=== PATIENT | female | born 1945 | race Caucasian/White ===

== ENCOUNTER → 2023-09-15 12:38 | Outpatient (REF) | payer OTHER, SELFPAY | LOC: RAD 12:38 | PROVIDERS: ATTENDING PHYSICIAN Physician Assistant Medical | DX: M81.0 Age-related osteoporosis without current pathological fracture (principal) | CPT/HCPCS: 77080 ==

== ENCOUNTER → 2023-12-01 10:26 | Outpatient (REF) | payer OTHER, SELFPAY | LOC: RAD 10:26 | PROVIDERS: ATTENDING PHYSICIAN Physician Assistant Medical | DX: R10.9 Unspecified abdominal pain (principal) | CPT/HCPCS: 71101 ==

== ENCOUNTER → 2024-04-29 14:21 | Outpatient (REF) | payer OTHER, SELFPAY | LOC: RAD 14:21 | PROVIDERS: ATTENDING PHYSICIAN Internal Medicine Endocrinology, Diabetes & Metabolism; FAMILY PHYSICIAN Physician Assistant Medical | DX: E04.2 Nontoxic multinodular goiter (principal) | CPT/HCPCS: 76536 ==

== ENCOUNTER → 2024-06-03 13:05 | Outpatient (REF) | payer OTHER, SELFPAY | LOC: HWRAD 13:05 | PROVIDERS: ATTENDING PHYSICIAN Obstetrics & Gynecology; FAMILY PHYSICIAN Physician Assistant Medical | DX: R31.21 Asymptomatic microscopic hematuria (principal) | CPT/HCPCS: 76770 ==

== ENCOUNTER → 2024-06-11 12:23 | Outpatient (REF) | payer OTHER, SELFPAY | LOC: RAD 12:23 | PROVIDERS: ATTENDING PHYSICIAN Obstetrics & Gynecology; FAMILY PHYSICIAN Physician Assistant Medical | DX: N13.30 Unspecified hydronephrosis (principal) | CPT/HCPCS: 74178; Q9967 ==